=== PATIENT | female | born 1980 | race Caucasian/White ===

== ENCOUNTER 2017-02-26 13:19 | Emergency (ER) | payer SELFPAY ==
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
== END 2017-02-26 14:16 | disposition home or self-care (01) ==
LOC: ER 13:19
DX: S40.022A Contusion of left upper arm, initial encounter (principal); F17.210 Nicotine dependence, cigarettes, uncomplicated; Z79.899 Other long term (current) drug therapy; V89.2XXA Person injured in unspecified motor-vehicle accident, traffic, initial encounter; Y92.009 Unspecified place in unspecified non-institutional (private) residence as the place of occurrence of the external cause

== ENCOUNTER 2017-04-05 17:53 | Emergency (ER) | payer SELFPAY ==
--- NOTE | 2017-04-10 07:25 | ER ---
ADMIT: 04/05/2017 RM/LOC: ER [facility] MR#: [id number] [address] [id number] [place] [address] Emergency Room Report SEX: F AGE: 36 : 1980 DATE: 04/05/2017 HISTORY OF PRESENT ILLNESS: The patient is a 36-year-old, who presents to emergency room with left ankle pain, stepped in a hole, twisted her left ankle. She is complaining of lateral aspect pain. Vitals within normal limits. There is swelling and tenderness of soft tissue in the lateral aspect of the left ankle. All other physical examination is within normal limits. X- ray did not show any fracture. CLINICAL IMPRESSION: Left ankle calcaneofibular sprain. DISPOSITION: Ultram for pain and a posterior splint and crutches. Instructions given to follow up Dr. Sanches. Ice to affected area. MESSI Palmer / Kj Barreto MD / meseretl JOB #: [id number] CC: Kj Barreto MD, Attending Physician Aida Sanches MD, Family Physician
== END 2017-04-05 19:30 | disposition home or self-care (01) ==
LOC: ER 17:53
PROC: 2W3MX1Z Immobilization of Left Lower Extremity using Splint (ICD-10-PCS; principal; 2017-04-05)
DX: S93.412A Sprain of calcaneofibular ligament of left ankle, initial encounter (principal); W17.2XXA Fall into hole, initial encounter